=== PATIENT | male | born 1990 | race Caucasian/White ===

== ENCOUNTER 2020-11-20 10:50 | Outpatient (REF) | payer OTHER, SELFPAY | END 2020-11-20 10:51 | disposition home or self-care (01) | LOC: HO.LAB 10:50 | PROVIDERS: PCP Internal Medicine; Visit Provider Internal Medicine | DX: Z20.828 Contact with and (suspected) exposure to other viral communicable diseases (principal) | CPT/HCPCS: C9803; U0003 ==

== ENCOUNTER 2020-11-21 16:30 | Emergency (ER) | payer OTHER, SELFPAY ==
--- NOTE | 2020-11-21 16:38 | XR_ITS ---
EXAMINATION: XR CHEST CLINICAL INFORMATION: Cough COMPARISON: Chest x-ray 08/18/2015 TECHNIQUE: Frontal portable view of the chest was obtained. 4:56 PM FINDINGS: No significant abnormality is noted involving the heart, lungs, mediastinum, bony thorax or soft tissues. Normal variant of azygos lobe. XR/XR chest 1V IMPRESSION: Unremarkable examination.
[2020-11-21 17:15] VITALS: PULSE 76; RESP 18; TEMP 37.1; O2SAT 97; BMI 35.9
--- NOTE | 2020-11-21 17:49 | ED.GENADULT ---
HPI - General Adult General Chief complaint: General Medical Stated complaint: cough Time Seen by Provider: 11/21/20 16:38 Source: patient Mode of arrival: ambulatory Limitations: no limitations History of Present Illness HPI narrative: 30-year-old male with asthma who reports he has had a cough for about 6 days now he got COVID tested yesterday awaiting results however he uses his inhaler but still has the cough that is bothersome. States he has had some mild chills but no fever. No chest pain or shortness of breath. Onset (ago): day(s) Exacerbating factors: none Treatments prior to arrival: none Related Data Previous Rx's Medication Instructions Recorded azithromycin [Zithromax Z-Jasbir] 250 mg PO DAILY 5 Days #6 tab 11/21/20 prednisone 40 mg PO DAILY 5 Days #10 tab 11/21/20 Allergies Allergy/AdvReac Type Severity Reaction Status Date / Time No Known Allergies Allergy Unverified 08/12/20 17:44 Review of Systems Review of Systems: Constitutional: No Weight loss, No Fever, No Chills, No Night Sweats, No Fatigue, No Malaise ENT/Mouth: No Hearing loss, No Ear Pain, No Nasal Congestion, No Sinus Pain, No Hoarseness, No sore throat, No Rhinorrhea, No Swallowing Difficulty Eyes: No Eye Pain, No Swelling, No Redness, No Foreign Body, No Discharge, No Vision Changes Cardiovascular: No Chest Pain, No SOB, No Dyspnea on Exertion, No Orthopnea, No Edema, No Palpitations Respiratory: + Cough, No Sputum, No Wheezing, No Smoke Exposure, No Dyspnea Gastrointestinal: No Nausea, No Vomiting, No Diarrhea, No Constipation, No abdominal Pain, No Hematochezia, No Melena Genitourinary: no irregular bleeding, No Dysuria, No Urinary Frequency, No Hematuria, No Urinary Incontinence, No Urgency, No Flank Pain Musculoskeletal: No joint pain, No Myalgias, No Joint Swelling Skin: No Skin Lesions, No rash Neuro: No Weakness, No Numbness, No Paresthesias, No Loss of Consciousness, No Dizziness, No Headache Psych: No Anxiety/Panic, No Depression, No SI/HI/AH/VH, No Social Issues, Heme/Lymph: No Bruising, No Bleeding,No Lymphadenopathy Endocrine: No Polyuria, No Polydipsia, No Temperature Intolerance Yes all other systems are reviewed and are negative PMFSH Social History Social History Advance Directives: No Advance Directives Information Provided: Yes Physical Exam Vital Signs: Vital Signs: Last Vital Signs Temp 98.8 F 11/21/20 17:15 Pulse 76 11/21/20 17:15 Resp 18 11/21/20 17:15 Pulse Ox 97 11/21/20 17:15 Body Mass Index 35.9 Reviewed Const: General: cooperative and healthy appearing; No acute distress or intoxicated appearing Nutritional Appearance: average body habitus Orientation/consciousness: patient oriented x3 HENMT: Head: Yes normal to inspection Ears: hearing grossly normal bilaterally Eyes: General: appearance normal, both eyes and all related structures Visual Woodward: normal visual woodward by confrontation Neck: Neck: Yes normal visual inspection, No positive Brudzinski's sign, No positive Kernig's sign and No tender Thyroid: Thyroid normal Chest: Chest palpation & inspection: normal inspection of the chest Resp: Effort & Inspection: normal respiratory effort Auscultation: clear to auscultation bilaterally Cardio: Jugular venous distension: no JVD Rhythm: regular rhythm Heart sounds: S1 normal heart sound present and S2 normal heart sound present GI: Inspection: Yes normal to inspection Percussion: Yes normal to percussion Auscultation: normal bowel sounds : General: Yes no CVA tenderness Back/Spine/Pelvis: Back: no CVA tenderness Skin: General skin exam: no rashes or lesions noted Neuro: General: patient oriented x3 Extrem: General: Yes normal to inspection Medical Decision Making Imaging Data Chest x-ray: Radiologist's impression: [place] [id number] XRay Report Signed Patient: Raymond Cerna#: [id number] : 1990Acct:[id number] Age/Sex: 30 / MADM Date: 11/21/20 Loc: HO.ED Attending Dr: Ordering Physician: Gagandeep Vasquez NP Date of Service: 11/21/20 Procedure(s): XR chest 1V Accession Number(s): [id number] cc: Gagandeep Vasquez NP~ EXAMINATION: XR CHEST CLINICAL INFORMATION: Cough COMPARISON: Chest x-ray 08/18/2015 TECHNIQUE: Frontal portable view of the chest was obtained. 4:56 PM FINDINGS: No significant abnormality is noted involving the heart, lungs, mediastinum, bony thorax or soft tissues. Normal variant of azygos lobe. XR/XR chest 1V IMPRESSION: Unremarkable examination. Dictated By:DAKOTA MANZANARES MD Signed By:<Electronically signed by DAKOTA MANZANARES MD in OV>11/21/20 1715 DD/ 1638 TD/TT: [employer] Good[employer] Helper: MARISSA Discharge Plan Discharge Clinical Impression: Upper respiratory infection, Cough Patient Disposition: Home, Self-Care Instructions: Upper Respiratory Infection (ED) Additional Instructions: Self-isolation Social distancing Push fluids Take medication prescribed Your COVID test result in next 2-3 days we will call you with results Return if any concerns or worsening symptoms Thank you Prescriptions: New prednisone 20 mg tablet 40 mg PO DAILY 5 Days Qty: 10 RF: 0 azithromycin [Zithromax Z-Jasbir] 250 mg tablet 250 mg PO DAILY 5 Days Qty: 6 RF: 0 Referrals: Physician,Unknown [Primary Care Provider] - 1 week Interventions: ED Discharge Assessment Last Done: 11/21/20 18:01 Discharge Date/Time: 11/21/20 18:03
== END 2020-11-21 18:03 | disposition home or self-care (01) ==
PROVIDERS: Emergency Provider Emergency Medicine Emergency Medical Services
DX: J06.9 Acute upper respiratory infection, unspecified (principal); R05 Cough; Z20.828 Contact with and (suspected) exposure to other viral communicable diseases
CPT/HCPCS: 71045; 99282; 99283

== ENCOUNTER 2020-12-01 15:03 | Outpatient (REF) | payer OTHER, SELFPAY | END 2020-12-01 15:04 | disposition home or self-care (01) | LOC: HO.LAB 15:03 | PROVIDERS: PCP Internal Medicine; Visit Provider Internal Medicine | DX: Z20.828 Contact with and (suspected) exposure to other viral communicable diseases (principal) | CPT/HCPCS: 36415; C9803; U0003 ==

== ENCOUNTER 2022-12-21 11:44 | Emergency (ER) | payer OTHER, SELFPAY ==
--- NOTE | ~2022-12-21 | XR_ITS ---
EXAMINATION: XR TIBIA AND FIBULA, RIGHT CLINICAL INFORMATION: Pain for 4 days COMPARISON: None TECHNIQUE: AP and lateral views of the right tibia and fibula were obtained. FINDINGS: No fracture or cortical disruption. Appropriate alignment of the knee and ankle. The soft tissues appear unremarkable. Small heel spurs. XR/XR tibia fibula RT 2V IMPRESSION: No fracture or malalignment. Small heel spurs.
--- NOTE | ~2022-12-21 | US_ITS ---
EXAMINATION: US VENOUS ULTRASOUND WITH DOPPLER LOWER EXTREMITY, RIGHT CLINICAL INFORMATION: Pain and swelling of the right lower extremity. COMPARISON: None TECHNIQUE: Ultrasound of the deep veins is performed from the hip to the calf with compression sonography and color and pulse Doppler assessment. Spectral analysis with color-flow imaging is performed. FINDINGS: There is normal venous compression and respiratory variation and augmented flow. The visualized common femoral vein, superficial femoral vein, profunda femoral vein, popliteal vein, and the trifurcation region shows no evidence of deep venous thrombosis. There is no significant popliteal fossa cyst. If the patient's symptoms persist, followup ultrasound in 5 days 7 days might be of value to exclude proximal propagation from a non-visualized calf vein. US/US venous duplex LE RT IMPRESSION: No DVT demonstrated in the right lower extremity.
[2022-12-21 12:06] VITALS: BP 173/98; PULSE 104; RESP 18; TEMP 36.7; O2SAT 97; BMI 52.2
--- NOTE | 2022-12-21 12:06 | ED.GENADULT ---
HPI - General Adult General Chief complaint: General Medical <Tabitha Gonzalez NP - Last Filed: 12/21/22 12:08> Stated complaint: Blood Clot? Leg Swelling <Tabitha Gonzalez NP - Last Filed: 12/21/22 12:08> Time Seen by Provider: 12/21/22 12:59 <Tabitha Gonzalez NP - Last Filed: 12/21/22 12:08> Source: patient <Fawn Hummel MD - Last Filed: 12/21/22 14:47> Mode of arrival: ambulatory <Fawn Hummel MD - Last Filed: 12/21/22 14:47> History of Present Illness HPI narrative: 32-year-old male who presents with right lower extremity redness, swelling that he feels is more noticeable than the left but denies any palpitations, shortness of breath, fevers, recent travel. <Fawn Hummel MD - Last Filed: 12/21/22 14:47> Related Data Home medications: Home Medications Medication Instructions Recorded Confirmed naproxen 500 mg tablet 500 mg PO BID PRN 03/28/21 Previous Rx's Medication Instructions Recorded azithromycin 250 mg tablet 250 mg PO DAILY 5 days #6 tabs 11/21/20 (Zithromax Z-Jasbir) prednisone 20 mg tablet 40 mg PO DAILY 5 days #10 tabs 11/21/20 naproxen 500 mg tablet 500 mg PO BID PRN pain #30 tabs 03/28/21 cyclobenzaprine 5 mg tablet 5 - 10 mg PO TID PRN muscle spasm 05/17/21 #15 tabs prednisone 20 mg tablet 20 mg PO DAILY 9 days #18 tabs 05/17/21 methylprednisolone 4 mg tablets in See Rx Instructions PO PER PKG DIR 12/12/22 a dose pack (Medrol (Jasbir)) #21 ea <Tabitha Gonzalez NP - Last Filed: 12/21/22 12:08> Allergies/adverse reactions: Allergies Allergy/AdvReac Type Severity Reaction Status Date / Time No Known Allergies Allergy Unverified 03/28/21 13:34 <Tabitha Gonzalez NP - Last Filed: 12/21/22 12:08> Review of Systems Review of Systems: Pertinent positives and negatives as stated in HPI <Fawn Hummel MD - Last Filed: 12/21/22 14:47> PMFSH Social History Social History: Social History Advance Directives: No Advance Directives Information Provided: Yes <Tabitha Gonzalez NP - Last Filed: 12/21/22 12:08> Physical Exam ED Vital Signs: Vital Signs - 24 hr 12/21/22 12:06 Temperature 98.1 F Pulse Rate 104 H Respiratory Rate 18 Blood Pressure 173/98 H Pulse Oximetry 97 Oxygen Delivery Method Room Air BMI result Body Mass Index 52.2 <Tabitha Gonzalez NP - Last Filed: 12/21/22 12:08> Vital Signs - 24 hr 12/21/22 12:06 Temperature 98.1 F Pulse Rate 104 H Respiratory Rate 18 Blood Pressure 173/98 H Pulse Oximetry 97 Oxygen Delivery Method Room Air BMI result Body Mass Index 52.2 VITAL SIGNS: Reviewed. GENERAL: Elevated BMI Well developed, well nourished, in no acute distress. HEAD: Normocephalic/atraumatic EYES: PERRLA, EOMI EARS: Ext canals without abnormality OROPHARYNX: no oral lesions noted, posterior pharynx clear LUNGS: Normal breath sounds. No adventitious sounds or accessory muscle use. SpO2<97> CARDIOVASCULAR: Regular rate and rhythm without noted murmurs ABDOMEN: Soft, non-tender, non-distended with bowel sounds. MUSCULOSKELETAL: No tenderness, deformities, or effusions noted on gross inspection. EXTREMITIES: No cyanosis, clubbing or edema; THERE IS NO NOTED ERYTHEMA THAT IS DIFFERENT FROM THE LEFT, there are no cords or posterior calf tenderness. SKIN: Inspection of the skin reveals no rashes NEUROLOGIC: Alert and oriented x 4. Strength and sensation to light touch were grossly intact x 4. <Fawn Hummel MD - Last Filed: 12/21/22 14:47> Course Course Course Narrative: This is a rapid medical exam. Deferred additional HPI, ROS, PE to primary provider. 32 yo male with history of obesity here with right lower leg pain/warmth/erythema x 4 days. No injury or trauma. Will obtain x-rays, venous US. VSS <Tabitha Gonzalez NP - Last Filed: 12/21/22 12:08> Medical Decision Making Medical Decision Making MDM Narrative: This is a 32-year-old male who has atraumatic complaints of right lower extremity swelling, on review my interpretation is that there is no evidence to suggest acute fracture, dislocation, thrombophlebitis, DVT. Patient was informed of all results and discharged home in stable condition with recommendations for weight loss and the use of compression stockings. <Fawn Hummel MD - Last Filed: 12/21/22 14:47> Differential Diagnosis Differential Diagnoses: The differential diagnosis associated with the presentation includes <Fawn Hummel MD - Last Filed: 12/21/22 14:47> Please see discussion above <Fawn Hummel MD - Last Filed: 12/21/22 14:47> Lab Data MDM Lab Attestation statement: I reviewed the patient's lab results. <Fawn Hummel MD - Last Filed: 12/21/22 14:47> Please see discussion above <Fawn Hummel MD - Last Filed: 12/21/22 14:47> Radiology Impression Radiologist Impression: My interpretation is in agreement with radiology's impression of imaging studies. <Fawn Hummel MD - Last Filed: 12/21/22 14:47> External Record Review External record reviewed: Outpatient record and Prior outpatient labs <Fawn Hummel MD - Last Filed: 12/21/22 14:47> Discharge Plan Discharge Clinical Impression: Leg pain, right <Tabitha Gonzalez NP - Last Filed: 12/21/22 12:08> Patient Disposition: Home, Self-Care <Tabitha Gonzalez NP - Last Filed: 12/21/22 12:08> Instructions: Leg Pain (ED) <Tabitha Gonzalez NP - Last Filed: 12/21/22 12:08> Additional Instructions: 1. Resume all home medications as prescribed. 2. Recommend that you follow-up with your primary care provider and use compression stockings as needed for better control of floor extremity swelling. Return to the ER for any worsening symptoms. <Tabitha Gonzalez NP - Last Filed: 12/21/22 12:08> Prescriptions: No Action methylprednisolone [Medrol (Jasbir)] 4 mg tablets,dose pack See Rx Instructions PO PER PKG DIR Qty: 21 0RF Rx Instructions: PO PER PKG DIR prednisone 20 mg tablet 40 mg PO DAILY 5 Days Qty: 10 0RF azithromycin [Zithromax Z-Jasbir] 250 mg tablet 250 mg PO DAILY 5 Days Qty: 6 0RF naproxen 500 mg tablet 500 mg PO BID PRN naproxen 500 mg tablet 500 mg PO BID PRN (Reason: pain) Qty: 30 0RF prednisone 20 mg tablet 20 mg PO DAILY 9 Days Qty: 18 0RF Rx Instructions: 3 tabs/60mg for 3 days 2 tabs/40mg for 3 days 1 tab/20mg for 3 days cyclobenzaprine 5 mg tablet 5 - 10 mg PO TID PRN (Reason: muscle spasm) Qty: 15 0RF <Tabitha Gonzalez NP - Last Filed: 12/21/22 12:08> Referrals: Timur Nicole MD [Primary Care Provider] - <Tabitha Gonzalez NP - Last Filed: 12/21/22 12:08>
== END 2022-12-21 15:08 | disposition home or self-care (01) ==
PROVIDERS: Emergency Provider Student in an Organized Health Care Education/Training Program; PCP Internal Medicine
DX: R60.0 Localized edema (principal); M79.604 Pain in right leg; Z79.899 Other long term (current) drug therapy
CPT/HCPCS: 73590; 93971; 99282; 99284

== ENCOUNTER 2023-04-02 09:24 | Outpatient (REF) | payer OTHER, SELFPAY ==
--- NOTE | ~2023-04-02 | XR_ITS ---
EXAMINATION: XR SHOULDER, LEFT CLINICAL INFORMATION: Pain COMPARISON: Left shoulder x-rays 01/06/2013 TECHNIQUE: Four views of the left shoulder. FINDINGS: Visualized portions of the proximal left humerus demonstrate no fracture. Humeral head demonstrates good articulation the glenoid fossa. The glenohumeral and acromioclavicular joints are normal in appearance. Visualized left-sided ribs and lung parenchyma are unremarkable. XR/XR shoulder LT min 2V IMPRESSION: Unremarkable radiographs of the left shoulder.
== END 2023-04-02 09:25 | disposition home or self-care (01) ==
LOC: HO.XRAY 09:24
PROVIDERS: PCP Internal Medicine; Visit Provider Internal Medicine
DX: M25.512 Pain in left shoulder (principal)
CPT/HCPCS: 73030

== ENCOUNTER → 2023-05-07 14:05 | Outpatient (BNVA) | payer OTHER, SELFPAY | PROVIDERS: PCP Internal Medicine; Visit Provider Orthopaedic Surgery ==

== ENCOUNTER 2024-01-07 12:38 | Outpatient (AMB) | payer OTHER, SELFPAY ==
--- NOTE | 2024-01-07 13:26 | MHC.OFFWIV ---
Intake Vital Signs 01/07/24 13:27 Height 5 ft 11 in BP 170/76 H Blood Pressure Location Lt brachial Position Sitting Pulse 90 Pulse Source Pulse Oximeter Temp 97.9 F Temp Source Temporal Artery Scan Pulse Oximetry (%) 98 Oxygen Delivery Method Room Air Intake Visit Reasons: EST/cough([phone]) Intake Note: pt is here today for cough started 4 days ago Patient Tobacco Use Status: Never used Tobacco Allergies No Known Allergies Allergy (Verified 01/07/24 14:22) Medication List - Last Reconciled 01/07/24 by Bernabe Barclay MD No Known Home Meds Do you need a note to return to daycare/school/sports/work: Yes HPI HPI Comments History of Present Illness Details Patient presents for a sick visit. Reporting symptoms of sinus congestion, sore throat and difficulty swallowing. Low-grade fever. No family member is sick. No recent travel. Patient reports symptoms of malaise and fatigue. [facility] Social History (Updated 05/07/23 @ 14:39 by Adina Meneses [facility]) Housing: House Patient Tobacco Use Status: Never used Tobacco e-Cigarette/Vaping Use: Never Used service: No Current occupational status: employed Current occupation: [employer] Physical Exam Vital Signs: Last Vital Signs Temp 97.9 F 01/07/24 13:27 Pulse 90 01/07/24 13:27 BP 170/76 H 01/07/24 13:27 Pulse Ox 98 01/07/24 13:27 Oxygen Delivery Method Room Air 01/07/24 13:27 Const General: cooperative and healthy appearing Nutritional Appearance: well nourished Orientation/consciousness: patient oriented x3 Limitations: no limitations HEENT Head: Yes normal to inspection Eyes General: appearance normal, both eyes and all related structures Neck Neck: Yes normal visual inspection Chest Chest palpation & inspection: normal palpation of entire chest wall Resp Effort & Inspection: normal respiratory effort Neuro General: patient oriented x3 Assessment & Plan Assessment & Plan (1) Upper respiratory tract infection: Code(s): J06.9 - Acute upper respiratory infection, unspecified Plan: Antibiotics ordered. Increase fluid intake. Tylenol for aches and pains. If symptoms worsen, follow-up here for a recheck. Coding Level of Care Code Est Pt Level 3 (40311) Diagnoses Upper respiratory tract infection J06.9
[2024-01-07 13:27] VITALS: BP 170/76; PULSE 90; TEMP 36.6; O2SAT 98
== END 2024-01-07 14:37 | disposition home or self-care (01) ==
PROVIDERS: PCP Internal Medicine; Visit Provider Internal Medicine
DX: J06.9 Acute upper respiratory infection, unspecified (principal)
CPT/HCPCS: 99213

== ENCOUNTER 2025-01-31 21:04 | Emergency (ER) | payer OTHER, SELFPAY ==
--- NOTE | ~2025-01-31 | XR_ITS ---
CLINICAL HISTORY: cough 1 view chest x-ray Comparison: CR - XR CHEST 1V - 11/21/20 16:56 EST Findings: No consolidation or effusion. Heart size is normal. No acute fracture. IMPRESSION: 1. No acute findings. This document has been electronically signed by: Brett Diggs MD on 01/31/2025 22:39:56
[2025-01-31 21:24] VITALS: BP 152/88; PULSE 108; RESP 18; TEMP 37.3; BMI 51.7
[2025-01-31 21:50] LABS: Basophils Percent Auto 0.2 % (0-2); Eosinophils Absolute Auto 0.1 X10*3/uL (0.0-0.4); Eosinophils Percent Auto 1.1 % (0-4); Hemoglobin 14.7 g/dl (14.0-18.0); Imm Gran Abs Auto 0.01 X10*3/uL (0.00-0.03); Imm Gran Pct Auto 0.2 % (0.0-0.4); Lymphocytes Absolute Auto 0.8 X10*3/uL (1.2-4.9); Lymphocytes Percent Auto 17.6 % (20-40); MANUAL DIFF FLAG NO; Mean Corpuscular HGB Conc 33.4 g/dl (31.0-36.0); Mean Corpuscular Hemoglobin 26.6 pg (27.0-33.0); Mean Corpuscular Volume 79.6 fL (80.0-98.0); Mean Platelet Volume 8.9 fL (9.4-12.4); Monocytes Absolute Auto 0.5 X10*3/uL (0.1-1.2); Monocytes Percent Auto 10.2 % (2-11); Neutrophils Absolute Auto 3.3 x10*3/uL (2.0-8.3); Neutrophils Percent Auto 70.7 % (45-73); Platelet Count 215 X10*3/uL (160-400); Red Blood Count 5.53 X10*6/uL (4.60-5.80); Red Cell Distribution Width 13.2 % (11.0-16.0); White Blood Count 4.6 X10*3/uL (4.8-10.8)
[2025-01-31 22:04] LABS: Alanine Aminotransferase 89 U/L (0-40); Albumin Level 4.1 g/dL (3.5-5.0); Alkaline Phosphatase 66 U/L (39-117); Anion Gap 12 (12-20); Aspartate Amino Transferase 69 U/L (5-37); Bilirubin Total 0.6 mg/dL (0.0-1.0); Blood Urea Nitrogen 12 mg/dL (9-16); Calcium 8.7 mg/dL (8.4-10.2); Carbon Dioxide 26 mmol/L (22-29); Chloride 104 mmol/L (96-108); Creatinine Clr Calc Pharmacy 172.2; Estimated Glomerular Filt Rate > 60; Glucose Random 158 mg/dL (60-115); Sodium 138 mmol/L (135-145); Total Protein 7.9 g/dL (6.5-8.0)
[2025-01-31 22:26] LABS: Influenza A PCR NEGATIVE (Negative); Influenza B PCR POSITIVE (Negative); Resp Syncy Virus RNA Qual PCR NEGATIVE (Negative); SARS COV2 PCR INHOUSE NEGATIVE (Negative)
[2025-02-01 03:16] VITALS: BP 141/82; PULSE 110; RESP 18; TEMP 37.3; O2SAT 95
[2025-02-01 04:30] VITALS: BP 160/96; PULSE 104; RESP 20; TEMP 37.2; O2SAT 96
--- NOTE | 2025-02-01 05:10 | ED_ITS ---
HPI - URI/Sore Throat General Chief Complaint: Upper Respiratory Symptoms Stated Complaint: coughing/tight chest/headache Time Seen by Provider: 02/01/25 05:00 Source: patient Mode of arrival: ambulatory Limitations: no limitations History of Present Illness ED Provider: HPI Narrative: Patient comes here with URI symptoms for last 4 days daughter was sick last week positive for influenza patient does have history of asthma coughing a lot with low-grade fever body aches chest tightness Related Data Previous Rx's ?Medication ?Instructions ?Recorded albuterol sulfate 90 mcg/actuation 1 inh inhalation QID PRN shortness 01/07/24 aerosol inhaler (Ventolin HFA) of breath or wheezing #8.5 grams azithromycin 250 mg tablet See Rx Instructions PO .COMPLEX #6 01/07/24 tabs prednisone 20 mg tablet 60 mg (3 x 20 mg) PO DAILY #9 tabs 01/07/24 codeine 10 mg-guaifenesin 100 mg/5 10 ml PO Q6H PRN cough #237 mL 02/01/25 mL oral liquid Allergies Allergy/AdvReac Type Severity Reaction Status Date / Time No Known Allergies Allergy Verified 01/31/25 21:24 Review of Systems 2 Review of Systems: Yes all other systems are reviewed and are negative [facility] Social History Social History Housing: House Patient Tobacco Use Status: Never used Tobacco e-Cigarette/Vaping Use: Never Used Advance Directives: No Advance Directives Information Provided: Yes Do you have a plan to hurt others: No Plan service: No Current occupational status: employed Current occupation: [employer] Physical Exam 2 Vital Signs: Vital Signs: Last Vital Signs Temp 99.0 F 02/01/25 05:45 Pulse 104 H 02/01/25 05:45 Resp 20 02/01/25 05:45 BP 160/96 H 02/01/25 05:45 Pulse Ox 96 02/01/25 05:45 O2 Del Method Room Air 02/01/25 05:45 BMI result Body Mass Index 51.7 Appearance: Alert. Oriented X3. No acute distress. Eyes: No pallor or icterus ENT: Pharynx erythematous clear rhinorrhea. Oral Mucosa moist Neck: Normal inspection. Neck supple. CVS: Normal heart rate and rhythm. Pulses normal. Respiratory: No respiratory distress. Equal air entry bilateral, no wheezing/rales/rhonchi Abdomen: Soft and nontender. Bowel sounds are present, Skin: Skin warm and dry. Normal skin color. Normal skin turgor. Extremities: No lower extremity edema. No calf tenderness Neuro: Oriented X 3. Medications Administered Discontinued Medications Generic Name Dose Route Start Last Admin Trade Name Freq PRN Reason Stop Dose Admin Guaifenesin/Codeine Phosphate 10 ml 02/01/25 05:34 02/01/25 05:37 Guaifen/Codeine Sf 200/20/10ml 10 Ml Liquid PO 02/01/25 05:35 10 ml ONCE ONE Administration Medical Decision Making Lab Data [facility] Lab Attestation statement: I reviewed the patient's lab results. 01/31/25 21:40 01/31/25 21:40 Labs: Lab Results 01/31/25 Range/Units 21:40 WBC 4.6 L (4.8-10.8) X10*3/uL RBC 5.53 (4.60-5.80) X10*6/uL Hgb 14.7 (14.0-18.0) g/dl Hct 44.0 (42.0-52.0) % MCV 79.6 L (80.0-98.0) fL MCH 26.6 L (27.0-33.0) pg MCHC 33.4 (31.0-36.0) g/dl RDW 13.2 (11.0-16.0) % Plt Count 215 (160-400) X10*3/uL MPV 8.9 L (9.4-12.4) fL Immature Gran % (Auto) 0.2 (0.0-0.4) % Neut % (Auto) 70.7 (45-73) % Lymph % (Auto) 17.6 L (20-40) % Owen % (Auto) 10.2 (2-11) % Eos % (Auto) 1.1 (0-4) % Baso % (Auto) 0.2 (0-2) % Lymph # (Auto) 0.8 L (1.2-4.9) X10*3/uL Owen # (Auto) 0.5 (0.1-1.2) X10*3/uL Eos # (Auto) 0.1 (0.0-0.4) X10*3/uL Baso # (Auto) 0.0 (0.0-0.2) X10*3/uL Abs Immat Gran (auto) 0.01 (0.00-0.03) X10*3/uL Absolute Neuts (auto) 3.3 (2.0-8.3) x10*3/uL Absolute Nucleated RBC 0.000 (0.0-0.012) X10*3/uL Nucleated RBC % (auto) 0.0 (0.0-0.2) /100WBC Sodium 138 (135-145) mmol/L Potassium 4.0 (3.3-5.1) mmol/L Chloride 104 (96-108) mmol/L Carbon Dioxide 26 (22-29) mmol/L Anion Gap 12 (12-20) BUN 12 (9-16) mg/dL Creatinine 0.97 (0.5-1.4) mg/dL Estim Creat Clear Calc 172.2 Estimated GFR > 60 Random Glucose 158 H (60-115) mg/dL Calcium 8.7 (8.4-10.2) mg/dL Total Bilirubin 0.6 (0.0-1.0) mg/dL AST 69 H (5-37) U/L ALT 89 H (0-40) U/L Alkaline Phosphatase 66 (39-117) U/L Total Protein 7.9 (6.5-8.0) g/dL Albumin 4.1 (3.5-5.0) g/dL Influenza Type A (PCR) NEGATIVE (Negative) Influenza Type B (PCR) POSITIVE A (Negative) RSV RNA Qual (PCR) NEGATIVE (Negative) SARS-CoV-2 RNA (RT-PCR) NEGATIVE (Negative) Independent Interpretation I performed an independent interpretation of an: Plain X-Ray Interpretation: Negative chest x-ray Radiology Impression Discussion of test interpretation with radiology: I have reviewed the radiologist's reading. Discharge Plan Discharge Clinical Impression: Influenza Patient Disposition: Home, Self-Care Instructions: Influenza (ED) Additional Instructions: Drink plenty of fluids Tylenol/Motrin for body aches and fever Cough syrup as prescribed Use your inhaler for asthma Prescriptions: New codeine-guaifenesin 10-100 mg/5 mL liquid 10 ml PO Q6H PRN (Reason: cough) Qty: 237 0RF No Action azithromycin 250 mg tablet See Rx Instructions PO .COMPLEX Qty: 6 0RF Rx Instructions: take 500 mg today (day 1), then 250 mg for 4 days (days 2-5) PO prednisone 20 mg tablet 60 mg PO DAILY Qty: 9 0RF albuterol sulfate [Ventolin HFA] 90 mcg/actuation HFA aerosol inhaler 1 inh inhalation QID PRN (Reason: shortness of breath or wheezing) Qty: 8.5 1RF Stand Alone Forms: Work/School Release Interventions: ED Discharge Assessment Last Done: 02/01/25 05:45 Discharge Date/Time: 02/01/25 05:49 Print Language: Yakut
[2025-02-01] MEDS: guaiFEN/Codeine SF 200/20/10ML 10 ML LIQUID PO (05:37)
[2025-02-01 05:45] VITALS: BP 160/96; PULSE 104; RESP 20; TEMP 37.2; O2SAT 96
== END 2025-02-01 05:49 | disposition home or self-care (01) ==
PROVIDERS: Emergency Provider Internal Medicine; PCP Internal Medicine
DX: J10.1 Influenza due to other identified influenza virus with other respiratory manifestations (principal); R07.89 Other chest pain; R05.9 Cough, unspecified; Z03.818 Encounter for observation for suspected exposure to other biological agents ruled out
CPT/HCPCS: 0241U; 36415; 71045; 80053; 85025; 99283

== ENCOUNTER → 2025-01-31 21:31 | Outpatient (BNV) | payer OTHER, SELFPAY | PROVIDERS: PCP Internal Medicine; Visit Provider Student in an Organized Health Care Education/Training Program | DX: R05.9 Cough, unspecified (principal) | CPT/HCPCS: 71045 ==